=== PATIENT | female | born 1985 | race African-American/Black ===

== ENCOUNTER 2016-07-25 08:56 | Emergency (ER) | payer BC, OTHER ==
[~2016-07-25] VITALS: Ht 167.6 cm; Wt 83.0 kg
[~2016-07-25 08:56] MED LIST: ATOR20TA15 PO; CEPH-460 PO; DARU1TAB2 PO; DOXY100C PO; EPZITAB3 PO; HYDR-3533 PO; IBUP-232 PO; LISI-515 PO
[2016-07-25 08:58] VITALS: BP 160/94; PULSE 70; RESP 24; TEMP 98.6; O2SAT 100
[2016-07-25 09:17] VITALS: BP 129/91; PULSE 68; RESP 18; O2SAT 100
[2016-07-25] MEDS ORDERED: CEPH-460 PO (09:24)
[2016-07-25] MEDS ORDERED: IBUP-232 PO (09:24)
--- NOTE | 2016-07-25 09:25 | PD ---
HPI Chief Complaint: Skin Problem Time Seen by Provider: 09:13 Travel History International Travel<30 days: No Contact w/Intl Traveler<30days: No Traveled to known affect area: No History of Present Illness HPI [id number] woman with a history of congenital HIV, well-controlled, as well as hidradenitis, presents with painful swelling in her intertriginous areas in her groin. She's done well after having a wide excision of both axilla about 6 months ago. This is only her second time having a recurrence in her groin. She states she is nare recently to shave and is worried this may have caused it. She follows with a general surgeon. She's been doing warm compresses but it's gotten more painful and tender. History Past Medical History Narrative Medical Hypertension high cholesterol HIV hidradenitis suppurativa Tetanus Vaccination: < 5 Years Influenza Vaccination: No LMP: 29 june : 0 Dilation and Curettage (D&C): No Social History Alcohol Use: Yes (occasional month) Tobacco Use: No (quit jan 2016) Allergies-Medications (Allergen,Severity, Reaction): Coded Allergies: Bactrim (Verified Allergy, Intermediate, Rash, 07/25/16) Sulfa (Verified Allergy, Intermediate, Rash, 07/25/16) Rash all over body Reported Meds & Prescriptions Reported Meds & Active Scripts Active Keflex (Cephalexin) 500 Mg Capsule 500 Mg PO TID 7 Days Ibuprofen 600 Mg Tab 600 Mg PO Q8HR PRN Reported Prezcobix (Darunavir-Cobicistat) 800-150 Mg Tab 1 Tab PO DAILY Lisinopril 20 Mg Tab 30 Mg PO DAILY Epzicom (Abacavir-Lamivudine) 600-300 Mg Tab 1 Tab PO DAILY Hazardous agent; use appropriate precautions for handling & disposal. Atorvastatin (Atorvastatin Calcium) 20 Mg Tab 20 Mg PO HS Review of Systems Except as stated in HPI: all other systems reviewed are Neg Physical Exam Narrative GENERAL: Well-appearing 22-year-old woman, no acute distress. SKIN: Warm and dry. CARDIOVASCULAR: Warm and well perfused. RESPIRATORY: Normal rate and effort. : On the left inguinal intertriginous fold, near the left labia majora, there is a small area of induration and tenderness, there is some fluctuance and a small pustular head. NEUROLOGICAL: Awake and alert. No gross deficits. Data Data Last Documented VS Vital Signs Date Time Temp Pulse Resp B/P Pulse Ox O2 Delivery O2 Flow Rate FiO2 07/25/16 09:17 68 18 129/91 100 Room Air 07/25/16 08:58 98.6 [facility] Medical Decision Making Medical Screen Exam Complete: Yes Emergency Medical Condition: Yes Differential Diagnosis Hidradenitis suppurativa, abscess, infection, other Narrative Course Medical decision making 22-year-old woman with soft tissue inflammation and infection and likely abscess related to hs. Would like to try to avoid surgically treating this given her history of hs to prevent additional scarring and sinus tract formation. We'll try antibiotics, warm compresses, if not improving will need drainage. We'll have her follow-up with her general surgeon who did her excisions and is managing her hs. Diagnosis Primary Impression: Hidradenitis suppurativa Patient Instructions: General Instructions Departure Forms: Tests/Procedures, Work Release Enter return to work date: Jul 27, 2016 Med/Other Pt SpecificInfo: Prescription(s) given Scripts Cephalexin (Keflex)500 Mg [id number] Mg PO TID 7 Days Ref 0 Prov:Tim Jeffries MD 07/25/16 Ibuprofen 600 Mg [id number] Mg PO Q8HR PRN (Pain/Inflammation) #21 TAB Ref 0 Prov:Tim Jeffries MD 07/25/16 Disposition: 01 DISCHARGE HOME Condition: Stable Tim Jeffries MD July 25, 2016 09:24
== END 2016-07-25 09:42 | disposition home or self-care (01) ==
LOC: NEPD 08:56
DX: L73.2 Hidradenitis suppurativa (principal)
CPT/HCPCS: 99283

== ENCOUNTER 2016-08-24 17:10 | Emergency (ER) | payer OTHER ==
[~2016-08-24] VITALS: Ht 167.6 cm; Wt 84.0 kg
[~2016-08-24 17:10] MED LIST changes: -DOXY100C PO; -HYDR-3533 PO
[2016-08-24 17:14] VITALS: BP 137/98; PULSE 102; RESP 16; TEMP 97.6; O2SAT 100
[2016-08-24] MEDS ORDERED: RITO100 PO (17:34)
[2016-08-24 17:36] LABS: BLOOD, URINE LARGE (NEG); GLUCOSE,URINE NEG (NEG); KETONE, URINE NEG (NEG); NITRITE,URINE NEG (NEG)
--- NOTE | 2016-08-24 17:44 | PD ---
HPI Chief Complaint: Concreting Supervisor Problem/Complaint Time Seen by Provider: 17:35 Travel History International Travel<30 days: No Contact w/Intl Traveler<30days: No Traveled to known affect area: No History of Present Illness HPI The patient is a 30-year-old after [place] Citizen female who presents emergency Department for vaginal itching. The patient states she used Fontanez 3 days ago on her inguinal hairs, has used in the past without difficulties. The patient then had protected sex with her boyfriend several days ago and developed vaginal itching. She states she is currently on her menstrual cycle, has a small amount of cramping, but denies any vaginal discharge. She does have a history of yeast infections with similar symptoms. The patient was born with HIV, is currently on antiviral therapy and states that her viral count is undetectable. She does note she uses a condom with every episode of intercourse. She denies any nausea, vomiting, abdominal pain, or fever. Symptoms are mild, possibly exacerbated by Fontanez or recent sexual activity and there are no current alleviating factors. PFSH Past Medical History Asthma: Yes Autoimmune Disease: Yes Blood Disorders: Yes (HIV) Heart Rhythm Problems: Yes Cardiovascular Problems: Yes High Cholesterol: Yes Cystic Fibrosis: No Diminished Hearing: No Gastrointestinal Disorders: No GERD: Yes Hypertension: Yes Immune Disorder: Yes (HIV) Musculoskeletal: No Neurologic: No Psychiatric: No Reproductive: No Respiratory: No Pneumonia: Yes (AGE 12) Seizures: No Shingles: Yes (AGE 15) Sleep Apnea: No Tetanus Vaccination: < 5 Years Influenza Vaccination: Yes ?: Not LMP: NOW : 0 Ectopic : No Ovarian Cysts: No Dilation and Curettage (D&C): No Tubal Ligation: No Past Surgical History Section: No Genitourinary Surgery: No Hysterectomy: No Neurologic Surgery: No Other Surgery: Yes (HIDRADENITIS) Social History Alcohol Use: Yes (occasional month) Tobacco Use: No (quit jan 2016) Substance Use: No Allergies-Medications (Allergen,Severity, Reaction): Coded Allergies: Bactrim (Verified Allergy, Intermediate, Rash, 08/24/16) Sulfa (Verified Allergy, Intermediate, Rash, 08/24/16) Rash all over body Reported Meds & Prescriptions Reported Meds & Active Scripts Active Reported Norvir (Ritonavir) 100 Mg Cap Unknown Dose PO BID Prezcobix (Darunavir-Cobicistat) 800-150 Mg Tab 1 Tab PO DAILY Lisinopril 20 Mg Tab 30 Mg PO DAILY Atorvastatin (Atorvastatin Calcium) 20 Mg Tab 20 Mg PO HS Review of Systems Except as stated in HPI: all other systems reviewed are Neg General / Constitutional: No: Fever Gastrointestinal: No: Nausea, Vomiting, Abdominal Pain Genitourinary: Positive: Pelvic Pain (cramping with menstrual cycle), Vaginal Bleeding (currently on her menstrual cycle), No: Dysuria Skin: Positive Itching, No Other Physical Exam Narrative GENERAL: Awake, alert, nontoxic-appearing 30-year-old Faye female who appears her stated age and is in no acute respiratory distress. SKIN: Focused skin assessment warm/dry. HEAD: Atraumatic. Normocephalic. EYES: No injection or drainage. NECK: Trachea midline. No JVD. GASTROINTESTINAL: Abdomen soft, non-tender, nondistended. No rebound tenderness. Back: No CVA tenderness. Genitourinary: The exam was performed in the presence of a female nurse. External examination reveals no rashes or lesions. Patient has a well-healed scar in the left suprapubic region, but no acute vesicles noted. No acute dermatitis noted. Speculum examination was performed which reveals scant blood in the vaginal vault. Cervix is closed. Normal exam. MUSCULOSKELETAL: No obvious deformities. No clubbing. No cyanosis. No edema. NEUROLOGICAL: Awake and alert. No obvious cranial nerve deficits. Motor grossly within normal limits. Normal speech. PSYCHIATRIC: Appropriate mood and affect; insight and judgment normal. Data Data Last Documented VS Vital Signs Date Time Temp Pulse Resp B/P Pulse Ox O2 Delivery O2 Flow Rate FiO2 08/24/16 17:14 97.6 102 16 137/98 100 Orders Ed Urine Pregnancytest Poc (08/24/16 17:24) Urinalysis - C+S If Indicated (08/24/16 17:24) Gc And Chlamydia Pcr (08/24/16 17:35) Wet Prep Profile (08/24/16 17:35) Labs Laboratory Tests Test 08/24/16 08/24/16 17:30 17:53 Urine Collection Type CLEAN CATCH Urine Color STRAW Urine Turbidity CLEAR Urine pH 7.0 Urine Specific [place] 1.022 Urine Protein NEG mg/dL Urine Glucose (UA) NEG mg/dL Urine Ketones NEG mg/dL Urine Occult Blood LARGE Urine Nitrite NEG Urine Bilirubin NEG Urine Leukocyte Esterase NEG Urine RBC 0-3 /hpf Urine WBC 0-2 /hpf Urine Squamous Epithelial 6-8 /hpf Cells Urine Bacteria RARE /hpf Microscopic Urinalysis Comment CULT NOT INDICATED Clue Cells (Wet Prep) NONE SEEN Vaginal Trichomonas (Wet Prep) NONE SEEN Vaginal Yeast (Wet Prep) NONE SEEN MDM Medical Decision Making Medical Screen Exam Complete: Yes Emergency Medical Condition: Yes Medical Record Reviewed: Yes Interpretation(s) Laboratory Tests Test 08/24/16 08/24/16 17:30 17:53 Urine Collection Type CLEAN CATCH Urine Color STRAW Urine Turbidity CLEAR Urine pH 7.0 Urine Specific [place] 1.022 Urine Protein NEG mg/dL Urine Glucose (UA) NEG mg/dL Urine Ketones NEG mg/dL Urine Occult Blood LARGE Urine Nitrite NEG Urine Bilirubin NEG Urine Leukocyte Esterase NEG Urine RBC 0-3 /hpf Urine WBC 0-2 /hpf Urine Squamous Epithelial 6-8 /hpf Cells Urine Bacteria RARE /hpf Microscopic Urinalysis Comment CULT NOT INDICATED Clue Cells (Wet Prep) NONE SEEN Vaginal Trichomonas (Wet Prep) NONE SEEN Vaginal Yeast (Wet Prep) NONE SEEN Differential Diagnosis Differential diagnosis includes [place] infection, medication side effect, bacterial vaginosis, trichomonas, vaginitis, chemical vaginitis, dermatitis. Narrative Course UA was sent to lab and bedside UA test was obtained. A pelvic exam was performed in the presence of a female nurse. Wet prep and gonorrhea/ chlamydia PCR were sent to lab. Bedside UA test was negative. Wet prep is negative. UA reveals blood, otherwise unremarkable. I do not suspect gonorrhea or chlamydia. I had a discussion with the patient, they do use condoms, the irritation could be chemical/contact irritant verses chemical reaction from possible spermicide. She is advised to follow-up with a metal patternmaker and return if symptoms worsen or progress. Patient is stable for outpatient follow-up. Diagnosis Primary Impression: Vaginal irritation Patient Instructions: General Instructions Med/Other Pt SpecificInfo: No Change to Meds Disposition: DISCHARGE HOME Condition: Stable Eliot Palma MD Aug 24, 2016 17:44
[2016-08-24 17:58] LABS: METHOD OF COLLECTION CLEAN CATCH; URINE COLOR STRAW (YELLW/STRAW)
[2016-08-24 17:59] LABS: WBC, URINE 0-2 /hpf (0-5)
[2016-08-24 18:00] LABS: BACTERIA, URINE RARE /hpf; COMMENT (UR) CULT NOT INDICATED; CULTURE IF INDICATED CULT NOT INDICATED; RBC, URINE 0-3 /hpf (0-3)
[2016-08-24 18:58] VITALS: BP 132/84; PULSE 84; RESP 18; O2SAT 98
[2016-08-25 03:02] LABS: CHLAMYDIA PCR NOT DETECTED (NOT DETECT); NEISSERIA PCR NOT DETECTED (NOT DETECT)
== END 2016-08-24 19:00 | disposition home or self-care (01) ==
LOC: PHED 17:10
DX: N89.8 Other specified noninflammatory disorders of vagina (principal); B20 Human immunodeficiency virus [HIV] disease; E78.00 Pure hypercholesterolemia, unspecified; I10 Essential (primary) hypertension; K21.9 Gastro-esophageal reflux disease without esophagitis
CPT/HCPCS: 81001; 84703; 87210; 87491; 87591; 99284

== ENCOUNTER 2016-09-14 19:46 | Emergency (ER) | payer OTHER ==
[~2016-09-14] VITALS: Ht 167.6 cm; Wt 82.0 kg
[~2016-09-14 19:46] MED LIST changes: -CEPH-460 PO; -EPZITAB3 PO; -IBUP-232 PO; +RITO100 PO
[2016-09-14 19:50] VITALS: BP 155/81; PULSE 20; PULSE 88; RESP 20; TEMP 97.7; O2SAT 100
[2016-09-14] MEDS ORDERED: EPZITAB3 PO (20:04)
--- NOTE | 2016-09-14 20:34 | PD ---
HPI Chief Complaint: Skin Problem Time Seen by Provider: 20:00 Travel History International Travel<30 days: No Contact w/Intl Traveler<30days: No Traveled to known affect area: No History of Present Illness HPI 30-year-old female presents emergency department for evaluation of wound on left great toe. She reports she had a wart cryotherapy several weeks ago. She reports 1 day ago she noticed pain and yellow discharge draining from the site. She denies fever or chills. She reports the pain is localized in the great toe it does not extend into the foot. patient was born with HIV, is currently on antiviral therapy and states that her viral count is undetectable. PFSH Past Medical History Asthma: Yes Autoimmune Disease: Yes Blood Disorders: Yes (HIV) Heart Rhythm Problems: Yes Cardiovascular Problems: Yes High Cholesterol: Yes Cystic Fibrosis: No Diminished Hearing: No Gastrointestinal Disorders: No GERD: Yes Hypertension: Yes Immune Disorder: Yes (HIV) Musculoskeletal: No Neurologic: No Psychiatric: No Reproductive: No Respiratory: No Pneumonia: Yes Seizures: No Shingles: Yes Sleep Apnea: No Tetanus Vaccination: < 5 Years Influenza Vaccination: Yes ?: Not LMP: First week of August : 0 Ectopic : No Ovarian Cysts: No Dilation and Curettage (D&C): No Tubal Ligation: No Past Surgical History Section: No Genitourinary Surgery: No Hysterectomy: No Neurologic Surgery: No Other Surgery: Yes (BL axilla for hidradenitis suppurativa) Social History Alcohol Use: Yes (Occ.) Tobacco Use: No Substance Use: Yes (Marijuana occ. ) Allergies-Medications (Allergen,Severity, Reaction): Coded Allergies: Bactrim (Verified Allergy, Intermediate, Rash, 09/14/16) Sulfa (Verified Allergy, Intermediate, Rash, 09/14/16) Rash all over body Reported Meds & Prescriptions Reported Meds & Active Scripts Active Reported Epzicom (Abacavir-Lamivudine) 600-300 Mg Tab 1 Tab PO DAILY Hazardous agent; use appropriate precautions for handling & disposal. Prezcobix (Darunavir-Cobicistat) 800-150 Mg Tab 1 Tab PO DAILY Lisinopril 20 Mg Tab 30 Mg PO DAILY Atorvastatin (Atorvastatin Calcium) 20 Mg Tab 20 Mg PO HS Review of Systems Except as stated in HPI: all other systems reviewed are Neg General / Constitutional: No: Fever Eyes: No: Visual changes HENT: No: Headaches Cardiovascular: No: Chest Pain or Discomfort Respiratory: No: Shortness of Breath Gastrointestinal: No: Abdominal Pain Genitourinary: No: Dysuria Physical Exam Narrative GENERAL: Well-nourished, well-developed patient. SKIN: Focused skin assessment warm/dry. Left great toe plantar aspect 1.5 cm diameter area of hyperpigmentation which patient reports is chronic. In the center of this is an open lesion which was the site of the wart. There is small amount of serosanguineous drainage from this area. The left toe is slightly edematous. There is no surrounding erythema. No fluctuance. HEAD: Normocephalic. EYES: No scleral icterus. No injection or drainage. NECK: Supple, trachea midline. No JVD or lymphadenopathy. CARDIOVASCULAR: Regular rate and rhythm without murmurs, gallops, or rubs. RESPIRATORY: Breath sounds equal bilaterally. No accessory muscle use. GASTROINTESTINAL: Abdomen soft, non-tender, nondistended. MUSCULOSKELETAL: No cyanosis, or edema. Left great toe plantar aspect 1.5 cm diameter area of hyperpigmentation which patient reports is chronic. In the center of this is an open lesion which was the site of the wart. There is small amount of serosanguineous drainage from this area. The left toe is slightly edematous. There is no surrounding erythema. No fluctuance. BACK: Nontender without obvious deformity. No CVA tenderness. Data Data Last Documented VS Vital Signs Date Time Temp Pulse Resp B/P Pulse Ox O2 Delivery O2 Flow Rate FiO2 09/14/16 19:50 97.7 88 20 155/81 100 Orders Foot, Limited (2vws) (09/14/16 ) [facility] Medical Decision Making Medical Screen Exam Complete: Yes Emergency Medical Condition: Yes Differential Diagnosis Wound infection, abscess, cellulitis, unlikely osteomyelitis Narrative Course 22-year-old female with chief complaint of left great toe pain status post cryotherapy to a wart several weeks ago. Patient reports yesterday she developed pain and drainage from the site. She denies fever or chills. X-ray pending to rule out osteomyelitis or foreign body. X-ray the foot negative for evidence of osteomyelitis. Patient will be put on clindamycin and instructed to have close follow-up. Return precautions discussed. Patient verbalizes understanding and agrees to plan. Diagnosis Primary Impression: Wound infection Referrals: Primary Care Physician Additional Instructions: Take the antibiotics as prescribed. Follow-up with her primary care doctor for recheck on Saturday. Return to the emergency department if he developed new or worsening symptoms Scripts Clindamycin 300 Mg [id number] Mg PO Q6H #40 CAP Prov:Louisa Macias 09/14/16 Disposition: 01 DISCHARGE HOME Condition: Stable Louisa Macias Sep 14, 2016 20:34
--- NOTE | 2016-09-14 20:57 | RADRPT ---
EXAM DATE/TIME: 09/14/2016 20:34 [facility] COMPARISON: No previous studies available for comparison. INDICATIONS : Swelling and pain left great toe. Possible infection. MEDICAL HISTORY : None. SURGICAL HISTORY : None. ENCOUNTER: Initial ACUITY: 4 - 6 days PAIN SCORE: 7/10 LOCATION: Left lateral FINDINGS: Two view examination of the left foot demonstrates no soft tissue swelling, dislocation, or fracture. The calcaneus is intact. Bony mineralization is normal. Posterior calcaneal enthesophyte formation . There is no subcutaneous emphysema or obvious cortical destruction. Soft tissues are unremarkable. CONCLUSION: No acute disease. Garland Ramon MD on September 14, 2016 at 20:54 Board Certified Radiologist. This report was verified electronically.
[2016-09-14] MEDS ORDERED: CLIN1CAP6 PO (21:03)
== END 2016-09-14 21:14 | disposition home or self-care (01) ==
LOC: PHEFT 19:46
DX: L08.9 Local infection of the skin and subcutaneous tissue, unspecified (principal); M79.675 Pain in left toe(s)
CPT/HCPCS: 73620; 99283

== ENCOUNTER 2016-11-15 04:33 | Emergency (ER) | payer OTHER ==
[~2016-11-15] VITALS: Ht 165.1 cm; Wt 83.4 kg
[~2016-11-15 04:33] MED LIST changes: +CLIN1CAP6 PO; +EPZITAB3 PO; -RITO100 PO
[2016-11-15 04:40] VITALS: BP 111/71; PULSE 94; RESP 16; TEMP 98.4; O2SAT 100
[2016-11-15] MEDS ORDERED: CHLO25TA2 PO (04:54)
[2016-11-15] MEDS ORDERED: METR-1 PO (04:54)
[2016-11-15] MEDS ORDERED: SODIUM CHLOR 0.9% 1000 ML INJ 1,000 ML IV SCH (05:11)
--- NOTE | 2016-11-15 05:11 | PD ---
HPI Chief Complaint: Flank/Kidney Pain Time Seen by Provider: 04:51 Travel History International Travel<30 days: No Contact w/Intl Traveler<30days: No Traveled to known affect area: No History of Present Illness HPI The patient is a 31-year-old female, G0, P0, A0 who complains of bilateral flank pain for 3 days. On Saturday she saw her [employer] doctor who diagnosed bacterial vaginosis and treated her with Flagyl. A negative urine test was done on Saturday. On Saturday she developed left flank pain and she discontinue the Flagyl thinking that the Flagyl might be causing her pain. She does have nausea without vomiting. She denies any fever. She denies any dysuria, frequency or urgency. She has never had any surgery and still has her appendix and gallbladder. Her last menstrual period was October 30. The patient states her abdominal pain is an 8-9/10 and a cramping type pain. PFSH Past Medical History Asthma: Yes Autoimmune Disease: Yes Blood Disorders: Yes (HIV) Heart Rhythm Problems: Yes Cardiovascular Problems: Yes High Cholesterol: Yes Cystic Fibrosis: No Diminished Hearing: No Gastrointestinal Disorders: No GERD: Yes Headaches: Yes Hypertension: Yes Immune Disorder: Yes (HIV) Musculoskeletal: No Neurologic: No Psychiatric: No Reproductive: No Respiratory: No Pneumonia: Yes Seizures: No Shingles: Yes Sleep Apnea: No Tetanus Vaccination: < 5 Years Influenza Vaccination: Yes ?: Not : 0 Ectopic : No Ovarian Cysts: No Dilation and Curettage (D&C): No Tubal Ligation: No Past Surgical History Section: No Genitourinary Surgery: No Hysterectomy: No Neurologic Surgery: No Other Surgery: Yes (BL axilla for hidradenitis suppurativa) Social History Alcohol Use: Yes (Occ.) Tobacco Use: No (QUIT AGE 30) Substance Use: Yes (Marijuana occ. ) Allergies-Medications (Allergen,Severity, Reaction): Coded Allergies: Sulfa (Sulfonamide Antibiotics) (Unverified Allergy, Intermediate, Rash, ) Rash all over body sulfamethoxazole (Unverified Allergy, Intermediate, Rash, 11/15/16) trimethoprim (Unverified Allergy, Intermediate, Rash, 11/15/16) Reported Meds & Prescriptions Reported Meds & Active Scripts Active Doxycycline Hyclate 100 Mg Cap 100 Mg PO BID Macrobid (Nitrofurantoin Monohydrate Macrocrystals) 100 Mg Capsule 100 Mg PO BID 10 Days Reported Chlorthalidone 25 Mg Tab 12.5 Mg PO DAILY Flagyl (Metronidazole) 500 Mg Tab 500 Mg PO BID Epzicom (Abacavir-Lamivudine) 600-300 Mg Tab 1 Tab PO DAILY Hazardous agent; use appropriate precautions for handling & disposal. Prezcobix (Darunavir-Cobicistat) 800-150 Mg Tab 1 Tab PO DAILY Lisinopril 20 Mg Tab 30 Mg PO DAILY Atorvastatin (Atorvastatin Calcium) 20 Mg Tab 20 Mg PO HS Review of Systems Except as stated in HPI: all other systems reviewed are Neg Physical Exam Narrative GENERAL: The patient is alert, oriented 3 and moderate apparent distress with her bilateral flank pain. Her vital signs are normal except for heart rate of 94. SKIN: Focused skin assessment warm/dry. HEAD: Atraumatic. Normocephalic. EYES: Pupils equal and round. No scleral icterus. No injection or drainage. ENT: No nasal bleeding or discharge. Mucous membranes pink and moist. NECK: Trachea midline. No JVD. CARDIOVASCULAR: Regular rate and rhythm. No murmur appreciated. RESPIRATORY: No accessory muscle use. Clear to auscultation. Breath sounds equal bilaterally. GASTROINTESTINAL: Abdomen soft, with tenderness diffusely in all 4 quadrants both the right and left quadrants are tender but the right upper quadrant is the most tender. The abdomen is nondistended. Hepatic and splenic margins not palpable. Ortiz's sign is negative. MUSCULOSKELETAL: No obvious deformities. No clubbing. No cyanosis. No edema. NEUROLOGICAL: Awake and alert. No obvious cranial nerve deficits. Motor grossly within normal limits. Normal speech. PSYCHIATRIC: Appropriate mood and affect; insight and judgment normal. GENITOURINARY: Normal external genitalia without lesions or erythema. Vaginal vault without blood and there is a pure white drainage. Cervical os was closed with clear drainage. There is exquisite cervical motion tenderness. Uterus tender and nonenlarged. Bilateral adnexa tender without masses. Data Data Last Documented VS Vital Signs Date Time Temp Pulse Resp B/P (MAP) Pulse Ox O2 Delivery O2 Flow Rate FiO2 11/15/16 06:46 88 16 116/74 (88) 100 Room Air 11/15/16 04:40 98.4 Orders Orders Beta Hcg (Quant/Titer) (11/15/16 05:11) Complete Blood Count With Diff (11/15/16 05:11) Comprehensive Metabolic Panel (11/15/16 05:11) Lipase (11/15/16 05:11) Urinalysis - C+S If Indicated (11/15/16 05:11) Ct Abd/Pel W Iv Contrast(Rout) (11/15/16 05:11) Iv Access Insert/Monitor (11/15/16 05:11) Ecg Monitoring (11/15/16 05:11) Oximetry (11/15/16 05:11) Ondansetron Inj (Zofran Inj) (11/15/16 05:15) Sodium Chlor 0.9% 1000 Ml Inj (Ns 1000 M (11/15/16 05:11) Sodium Chloride 0.9% Flush (Ns Flush) (11/15/16 05:15) Hydromorphone Pf Inj (Dilaudid Pf Inj) (11/15/16 05:15) Gc And Chlamydia Pcr (11/15/16 05:13) Wet Prep Profile (11/15/16 05:13) Iohexol 350 Inj (Omnipaque 350 Inj) (11/15/16 06:20) Urine Culture (11/15/16 06:10) Ceftriaxone Inj (Rocephin Inj) (11/15/16 07:00) Doxycycline (Vibramycin) (11/15/16 07:00) Labs Laboratory Tests Test 11/15/16 04:55 11/15/16 06:10 White Blood Count 9.6 TH/MM3 Red Blood Count 4.59 MIL/MM3 Hemoglobin 11.8 GM/DL Hematocrit 36.7 % Mean Corpuscular Volume 79.9 FL Mean Corpuscular Hemoglobin 25.6 PG Mean Corpuscular Hemoglobin Concent 32.1 % Red Cell Distribution Width 21.9 % Platelet Count 283 TH/MM3 Mean Platelet Volume 9.5 FL Neutrophils (%) (Auto) 61.9 % Lymphocytes (%) (Auto) 29.1 % Monocytes (%) (Auto) 7.7 % Eosinophils (%) (Auto) 0.5 % Basophils (%) (Auto) 0.8 % Neutrophils # (Auto) 6.0 TH/MM3 Lymphocytes # (Auto) 2.8 TH/MM3 Monocytes # (Auto) 0.7 TH/MM3 Eosinophils # (Auto) 0.0 TH/MM3 Basophils # (Auto) 0.1 TH/MM3 CBC Comment DIFF FINAL Differential Comment Clue Cells (Wet Prep) PRESENT Vaginal Trichomonas (Wet Prep) NONE SEEN Vaginal Yeast (Wet Prep) NONE SEEN Blood Urea Nitrogen 14 MG/DL Creatinine 0.92 MG/DL Random Glucose 120 MG/DL Total Protein 7.5 GM/DL Albumin 3.2 GM/DL Calcium Level 8.5 MG/DL Alkaline Phosphatase 79 U/L Aspartate Amino Transf (AST/SGOT) 12 U/L Alanine Aminotransferase (ALT/SGPT) 23 U/L Total Bilirubin 0.3 MG/DL Sodium Level 137 MEQ/L Potassium Level 3.3 MEQ/L Chloride Level 102 MEQ/L Carbon Dioxide Level 25.6 MEQ/L Anion Gap 9 MEQ/L Estimat Glomerular Filtration Rate 87 ML/MIN Lipase 112 U/L Human Chorionic Gonadotropin, Quant LESS THAN 1 MIU/ML Urine Color YELLOW Urine Turbidity SLIGHT Urine pH 6.0 Urine Specific [place] 1.008 Urine Protein NEG mg/dL Urine Glucose (UA) NEG mg/dL Urine Ketones NEG mg/dL Urine Occult Blood TRACE Urine Nitrite NEG Urine Bilirubin NEG Urine Leukocyte Esterase MOD Urine RBC 0-3 /hpf Urine WBC 50-99 /hpf Urine WBC Clumps MOD Urine Squamous Epithelial Cells 0-5 /hpf Urine Bacteria OCC /hpf Microscopic Urinalysis Comment CULTURE INDICATED MDM Medical Decision Making Medical Screen Exam Complete: Yes Emergency Medical Condition: Yes Medical Record Reviewed: Yes Interpretation(s) The complete metabolic profile shows a potassium of 3.3, GFR of 87, glucose of 120 and albumen 3.2 but is otherwise unremarkable. The lipase is normal and the beta-hCG is less than 1. The CBC is normal except for a slightly low MCV and MCH. The wet prep is positive for clue cells but negative for Trichomonas and yeast. The urine shows slight turbidity, specific gravity 1.008, trace occult blood with moderate leukocyte esterase and 15 and 99 white cells and moderate white cell clumping's and occasional bacteria and culture is indicated. Differential Diagnosis PID, urinary tract infection, rupture ovarian cyst, cholecystitis, cholelithiasis with colic, pancreatitis, colitis, electrolyte disorder, intrauterine , ectopic Narrative Course The patient likely has pyelonephritis and cystitis. She also may have PID. The CT scan shows thickening of the bladder characteristic of cystitis. She has tenderness over her kidneys, this is likely from the pyelonephritis. Physician Communication Physician Communication As we discussed, you will need to take your metronidazole as prescribed for the bacterial vaginosis. The doxycycline is one tablet twice daily for 10 days. Increase your liquid intake, it is important to have a good urine flow across your kidneys to fight a urine infection. Follow-up with your primary care physician next week. Diagnosis Primary Impression: Pyelonephritis Additional Impression: PID (pelvic inflammatory disease) Med/Other Pt SpecificInfo: Prescription(s) given Scripts Promethazine (Phenergan) 25 Mg Tablet 25 MG PO Q6H Y for NAUSEA OR VOMITING, #30 TAB 0 Refills Prov: Fausto Rucker MD 11/15/16 Doxycycline Hyclate (Doxycycline Hyclate) 100 Mg Cap 100 MG PO BID for Infection, #20 CAP 0 Refills Prov: Fausto Rucker MD 11/15/16 Nitrofurantoin Monohydrate Macrocrystals (Macrobid) 100 Mg Capsule 100 MG PO BID for Infection for 10 Days, #20 CAP 0 Refills Prov: Fausto Rucker MD 11/15/16 Disposition: 01 DISCHARGE HOME Condition: Stable Fausto Rucker MD Nov 15, 2016 05:11
[2016-11-15] MEDS ORDERED: HYDROmorphone HCL PF 1 MG/ML VIAL IVS ONE (05:15)
[2016-11-15] MEDS ORDERED: ONDANSETRON HCL 4 MG/2 ML VIAL IVP ONE (05:15)
[2016-11-15] MEDS ORDERED: SODIUM CHLORIDE 0.9% FLUSH 10 ML FLUSH IV FLUSH PRN (05:15)
[2016-11-15 05:42] LABS: BASOPHIL # 0.1 TH/MM3 (0-0.2); BASOPHIL % 0.8 % (0.0-2.0); EOSINOPHIL % 0.5 % (0.0-4.0); HEMATOCRIT 36.7 % (35.0-46.0); HEMO FLAGS DIFF FINAL; LYMPH % 29.1 % (9.0-44.0); LYMPHOCYTE # 2.8 TH/MM3 (1.0-4.8); MEAN CELL VOLUME 79.9 FL (80.0-100.0); MEAN CORPUSCULAR HEMOGLOBIN 25.6 PG (27.0-34.0); MEAN CORPUSCULAR HGB CONC 32.1 % (32.0-36.0); MONO % 7.7 % (0.0-8.0); NEUT % 61.9 % (16.0-70.0); PLATELET COUNT 283 TH/MM3 (150-450); RED BLOOD COUNT 4.59 MIL/MM3 (4.00-5.30); RED CELL DISTRIBUTION WIDTH 21.9 % (11.6-17.2); WHITE BLOOD COUNT 9.6 TH/MM3 (4.0-11.0)
[2016-11-15 05:45] VITALS: PULSE 84; RESP 16; O2SAT 100
[2016-11-15 05:47] LABS: CHLORIDE 102 MEQ/L (98-107); POTASSIUM 3.3 MEQ/L (3.5-5.1); SODIUM (NA) 137 MEQ/L (136-145)
[2016-11-15 05:51] LABS: ANION GAP 9 MEQ/L (5-15); BICARBONATE 25.6 MEQ/L (21.0-32.0)
[2016-11-15 05:52] LABS: BLOOD UREA NITROGEN 14 MG/DL (7-18)
[2016-11-15 05:54] LABS: ALT (GPT) 23 U/L (10-53); AST (GOT) 12 U/L (15-37); GLOMERULAR FILTRATION RATE 87 ML/MIN (>89)
[2016-11-15 05:56] LABS: TOTAL BILIRUBIN ADULT 0.3 MG/DL (0.2-1.0)
[2016-11-15 05:57] LABS: ALKALINE PHOSPHATASE 79 U/L (45-117)
[2016-11-15 06:00] LABS: BETA HCG QUANT LESS THAN 1 MIU/ML (0-5)
[2016-11-15 06:16] LABS: BLOOD, URINE TRACE (NEG); GLUCOSE,URINE NEG (NEG); KETONE, URINE NEG (NEG); NITRITE,URINE NEG (NEG)
[2016-11-15 06:20] LABS: URINE COLOR YELLOW (YELLW/STRAW)
[2016-11-15] MEDS ORDERED: IOHEXOL 350 MG/ML 10 ML VIAL (for RAD DIAG) IVCONTRAST ONE (06:20)
[2016-11-15 06:22] LABS: RBC, URINE 0-3 /hpf (0-3); SQUAMOUS EPITHELIAL CELL URINE 0-5 /hpf (0-5)
[2016-11-15 06:23] LABS: BACTERIA, URINE OCC /hpf; COMMENT (UR) CULTURE INDICATED; CULTURE IF INDICATED CULTURE INDICATED
[2016-11-15 06:46] VITALS: BP 116/74; PULSE 88; RESP 16; O2SAT 100
[2016-11-15] MEDS ORDERED: MACR100C2 PO (06:50)
[2016-11-15] MEDS ORDERED: DOXY100C PO (06:52)
--- NOTE | 2016-11-15 06:54 | RADRPT ---
EXAM DATE/TIME: 11/15/2016 06:16 [facility] COMPARISON: No previous studies available for comparison. INDICATIONS : Bilateral abdominal pain. IV CONTRAST: 100 cc Omnipaque 350 (iohexol) IV ORAL CONTRAST: No oral contrast ingested. RADIATION DOSE: 13.71 CTDIvol (mGy) MEDICAL HISTORY : Hypertension. HIV. SURGICAL HISTORY : None. ENCOUNTER: Initial ACUITY: 2 days PAIN SCALE: 8/10 LOCATION: Bilateral abdomen TECHNIQUE: Volumetric scanning of the abdomen and pelvis was performed. Using automated exposure control and ad justment of the mA and/or kV according to patient size, radiation dose was kept as low as reasonably achievable to obtain optimal diagnostic quality images. DICOM format image data is available electro nically for review and comparison. FINDINGS: LOWER LUNGS: The visualized lower lungs are clear. LIVER: Homogeneous density without lesion. There is no dilation of the biliary tree. No calcified gallston es. SPLEEN: Normal size without lesion. PANCREAS: Within normal limits. KIDNEYS: Normal in size and shape. There is no mass, stone or hydronephrosis. ADRENAL GLANDS: Within normal limits. VASCULAR: There is no aortic aneurysm. BOWEL/MESENTERY: The stomach, small bowel, and colon demonstrate no acute abnormality. There is no free intraperitone al air or fluid. ABDOMINAL WALL: Within normal limits. RETROPERITONEUM: There is no lymphadenopathy. BLADDER: There is circumferential wall thickening involving the urinary bladder. No calcified bladder stone ob served. REPRODUCTIVE: Within normal limits. INGUINAL: There is no lymphadenopathy or hernia. MUSCULOSKELETAL: Within normal limits for patient age. CONCLUSION: 1. Significant circumferential wall thickening involving the urinary bladder suggesting acute cystiti sCorey Richmond Jr., MD on November 15, 2016 at 6:50 Board Certified Radiologist. This report was verified electronically.
[2016-11-15] MEDS ORDERED: PROM25TA10 PO (06:59)
[2016-11-15 07:00] VITALS: O2SAT 100
[2016-11-15] MEDS ORDERED: cefTRIAXone INJ 1,000 MG in SODIUM CHLORIDE 0.9% INJ 100 ML IV ONE (07:00)
[2016-11-15] MEDS ORDERED: DOXYCYCLINE HYCLATE 100 MG CAP PO ONE (07:00)
[2016-11-15 13:26] LABS: CHLAMYDIA PCR NOT DETECTED (NOT DETECT); NEISSERIA PCR NOT DETECTED (NOT DETECT)
== END 2016-11-15 08:04 | disposition home or self-care (01) ==
LOC: PHED 04:33
DX: N12 Tubulo-interstitial nephritis, not specified as acute or chronic (principal); N73.9 Female pelvic inflammatory disease, unspecified; Z87.891 Personal history of nicotine dependence; E78.00 Pure hypercholesterolemia, unspecified; I10 Essential (primary) hypertension; B20 Human immunodeficiency virus [HIV] disease
CPT/HCPCS: 74177; 80053; 81001; 83690; 84702; 85025; 86403; 87077; 87086; 87186; 87210; 87491; 87591; 96361; 96365; 96375; 99285; J0696; J1170; J2405; J7030; Q9967

== ENCOUNTER 2016-12-05 07:33 | Emergency (ER) | payer BC, OTHER ==
[~2016-12-05] VITALS: Ht 167.6 cm; Wt 84.0 kg
[~2016-12-05 07:33] MED LIST changes: +CHLO25TA2 PO; -CLIN1CAP6 PO; +DOXY100C PO; +MACR100C2 PO; +METR-1 PO; +PROM25TA10 PO
[2016-12-05 07:35] VITALS: BP 119/77; PULSE 92; RESP 14; TEMP 98.7; O2SAT 100
[2016-12-05] MEDS ORDERED: APRITAB PO (07:53)
[2016-12-05 08:00] VITALS: BP 126/88; PULSE 80; RESP 16; O2SAT 100
[2016-12-05] MEDS ORDERED: SODIUM CHLOR 0.9% 1000 ML INJ 1,000 ML IV SCH (08:08)
--- NOTE | 2016-12-05 08:08 | PD ---
HPI Chief Complaint: Abdominal Pain Time Seen by Provider: 07:44 Travel History International Travel<30 days: No Contact w/Intl Traveler<30days: No Traveled to known affect area: No History of Present Illness HPI 31-year-old female came to the emergency room with history of abdominal pain mostly on the left flank area. Patient says that she started having this pain since past 2 days. It's progressively worsening. The location has not changed. It starts off in the left lower quadrant and occasionally moves to her left flank. It's a sharp pain and comes and goes. No history of nausea vomiting. Patient was seen in [place] emergency room about 3 weeks ago for lower abdominal pain when she was diagnosed with UTI as well as STD. She was discharged home on Flagyl, doxycycline and Macrobid that she finished taking 2- 3 days ago. Patient has also started with diarrhea. Patient said that in past 24 hours she has had 8 episodes of watery diarrhea. They're nonbloody. Vital signs are stable. [facility] Past Medical History Narrative Medical List of her past medical, surgical, social and family history is reviewed from the nursing note. Asthma: Yes Autoimmune Disease: Yes Blood Disorders: Yes (HIV) Heart Rhythm Problems: Yes Cardiovascular Problems: Yes High Cholesterol: Yes Cystic Fibrosis: No Diminished Hearing: No Gastrointestinal Disorders: No GERD: Yes Headaches: Yes Hypertension: Yes Immune Disorder: Yes (HIV) Musculoskeletal: No Neurologic: No Psychiatric: No Reproductive: No Respiratory: No Pneumonia: Yes Seizures: No Shingles: Yes Sleep Apnea: No Influenza Vaccination: Yes ?: Unknown LMP: 3 weeks ago : 0 Ectopic : No Ovarian Cysts: No Dilation and Curettage (D&C): No Tubal Ligation: No Past Surgical History Section: No Genitourinary Surgery: No Hysterectomy: No Neurologic Surgery: No Other Surgery: Yes (BL axilla for hidradenitis suppurativa) Social History Alcohol Use: Yes (Occ.) Tobacco Use: No (QUIT AGE 30) Substance Use: No Allergies-Medications (Allergen,Severity, Reaction): Coded Allergies: Sulfa (Sulfonamide Antibiotics) (Unverified Allergy, Intermediate, Rash, 12/05/16) Rash all over body sulfamethoxazole (Unverified Allergy, Intermediate, Rash, 12/05/16) trimethoprim (Unverified Allergy, Intermediate, Rash, 12/05/16) Comments List of her allergies reviewed from the nursing note. Reported Meds & Prescriptions Reported Meds & Active Scripts Active Lomotil (Diphenoxylate-Atropine) 2.5-0.025 Mg Tab 1 Tab PO Q6H PRN Phenergan (Promethazine HCl) 25 Mg Tablet 25 Mg PO Q6H PRN Reported Apri (Desogestrel-Ethinyl Estradiol) 0.15-30 Mg-Mcg Tab 1 Tab PO DAILY Chlorthalidone 25 Mg Tab 12.5 Mg PO DAILY Epzicom (Abacavir-Lamivudine) 600-300 Mg Tab 1 Tab PO DAILY Hazardous agent; use appropriate precautions for handling & disposal. Prezcobix (Darunavir-Cobicistat) 800-150 Mg Tab 1 Tab PO DAILY Lisinopril 20 Mg Tab 30 Mg PO DAILY Atorvastatin (Atorvastatin Calcium) 20 Mg Tab 20 Mg PO HS Narrative Medication List of her home medications reviewed from the nursing note. Review of Systems Except as stated in HPI: all other systems reviewed are Neg Gastrointestinal: Positive: Diarrhea, Abdominal Pain Physical Exam Narrative GENERAL: Awake, alert, mild distress SKIN: Focused skin assessment warm/dry. HEAD: Atraumatic. Normocephalic. EYES: Pupils equal and round. No scleral icterus. No injection or drainage. ENT: No nasal bleeding or discharge. Mucous membranes pink and moist. NECK: Trachea midline. No JVD. CARDIOVASCULAR: Regular rate and rhythm. No murmur appreciated. RESPIRATORY: No accessory muscle use. Clear to auscultation. Breath sounds equal bilaterally. GASTROINTESTINAL: Abdomen soft, non-tender, nondistended. Hepatic and splenic margins not palpable. MUSCULOSKELETAL: No obvious deformities. No clubbing. No cyanosis. No edema. NEUROLOGICAL: Awake and alert. No obvious cranial nerve deficits. Motor grossly within normal limits. Normal speech. PSYCHIATRIC: Appropriate mood and affect; insight and judgment normal. Data Data Last Documented VS Vital Signs Date Time Temp Pulse Resp B/P (MAP) Pulse Ox O2 Delivery O2 Flow Rate FiO2 12/05/16 11:31 12/05/16 11:00 80 16 100 Room Air 12/05/16 07:35 98.7 Orders Orders Basic Metabolic Panel (Bmp) (12/05/16 08:08) Complete Blood Count With Diff (12/05/16 08:08) Urinalysis - C+S If Indicated (12/05/16 08:08) Iv Access Insert/Monitor (12/05/16 08:08) Ecg Monitoring (12/05/16 08:08) Oximetry (12/05/16 08:08) Sodium Chlor 0.9% 1000 Ml Inj (Ns 1000 M (12/05/16 08:08) Sodium Chloride 0.9% Flush (Ns Flush) (12/05/16 08:15) C Diff Toxin Pcr (12/05/16 08:08) Ketorolac Inj (Toradol Inj) (12/05/16 10:15) Ed Discharge Order (12/05/16 10:52) Labs Laboratory Tests Test 12/05/16 08:45 12/05/16 10:04 White Blood Count 6.1 TH/MM3 Red Blood Count 4.70 MIL/MM3 Hemoglobin 12.6 GM/DL Hematocrit 38.0 % Mean Corpuscular Volume 80.9 FL Mean Corpuscular Hemoglobin 26.7 PG Mean Corpuscular Hemoglobin Concent 33.0 % Red Cell Distribution Width 23.7 % Platelet Count 218 TH/MM3 Mean Platelet Volume 9.1 FL Neutrophils (%) (Auto) 70.5 % Lymphocytes (%) (Auto) 17.8 % Monocytes (%) (Auto) 11.5 % Eosinophils (%) (Auto) 0.0 % Basophils (%) (Auto) 0.2 % Neutrophils # (Auto) 4.3 TH/MM3 Lymphocytes # (Auto) 1.1 TH/MM3 Monocytes # (Auto) 0.7 TH/MM3 Eosinophils # (Auto) 0.0 TH/MM3 Basophils # (Auto) 0.0 TH/MM3 CBC Comment DIFF FINAL Differential Comment Blood Urea Nitrogen 9 MG/DL Creatinine 0.71 MG/DL Random Glucose 78 MG/DL Calcium Level 8.0 MG/DL Sodium Level 137 MEQ/L Potassium Level 4.7 MEQ/L Chloride Level 105 MEQ/L Carbon Dioxide Level 26.4 MEQ/L Anion Gap 6 MEQ/L Estimat Glomerular Filtration Rate 118 ML/MIN Urine Color YELLOW Urine Turbidity CLEAR Urine pH 6.5 Urine Specific [place] 1.016 Urine Protein NEG mg/dL Urine Glucose (UA) NEG mg/dL Urine Ketones TRACE mg/dL Urine Occult Blood NEG Urine Nitrite NEG Urine Bilirubin NEG Urine Urobilinogen LESS THAN 2.0 MG/DL Urine Leukocyte Esterase TRACE Urine RBC 2 /hpf Urine WBC 1 /hpf Urine Squamous Epithelial Cells 2 /hpf Urine Bacteria RARE /hpf Urine Mucus FEW /lpf Microscopic Urinalysis Comment CULT NOT INDICATED MDM Medical Decision Making Medical Screen Exam Complete: Yes Emergency Medical Condition: Yes Medical Record Reviewed: Yes Differential Diagnosis UTI, musculoskeletal pain, colitis, renal colic Narrative Course 10:07 AM CBC is back which is within normal limit. Awaiting for the chemistry and UA. Patient was given a liter of IV fluid bolus. I'll order some Toradol. I looked at the CAT scan report that was done 3 weeks ago which showed mainly cystitis. The urine culture was positive for staph that were sensitive to Macrobid that she was sent home on. I do not intend to do another CAT scan since I did not appreciate any guarding or rebound. 10:52 AM all the blood test results of back and within acceptable limits. I'll discharge her home. Patient has not had any bowel movements here. Procedures EKG Prior to Arrival: No Diagnosis Primary Impression: Diarrhea Qualified Codes: R19.7 - Diarrhea, unspecified Referrals: Primary Care Physician 2 days Additional Instructions: Please return to the ER if the condition worsens or any other new concerns. Drink lots of fluid to keep himself hydrated. Take the medicine as per the prescription direction. Med/Other Pt SpecificInfo: Prescription(s) given Scripts Diphenoxylate-Atropine (Lomotil) 2.5-0.025 Mg Tab 1 TAB PO Q6H Y for DIARRHEA, #10 TAB 0 Refills Prov: Aisha Puri MD 12/05/16 Disposition: 01 DISCHARGE HOME Condition: Stable Aisha Puri MD Dec 05, 2016 08:08
[2016-12-05] MEDS ORDERED: SODIUM CHLORIDE 0.9% FLUSH 10 ML FLUSH IV FLUSH PRN (08:15)
[2016-12-05 08:37] VITALS: RESP 16; O2SAT 99
[2016-12-05 09:02] LABS: AUTOMATED NEUTROPHIL # 4.3 TH/MM3 (1.8-7.7); BASOPHIL % 0.2 % (0.0-2.0); HEMO FLAGS DIFF FINAL; LYMPH % 17.8 % (9.0-44.0); LYMPHOCYTE # 1.1 TH/MM3 (1.0-4.8); MEAN CELL VOLUME 80.9 FL (80.0-100.0); MEAN CORPUSCULAR HEMOGLOBIN 26.7 PG (27.0-34.0); MONO % 11.5 % (0.0-8.0); NEUT % 70.5 % (16.0-70.0); PLATELET COUNT 218 TH/MM3 (150-450); RED CELL DISTRIBUTION WIDTH 23.7 % (11.6-17.2); WHITE BLOOD COUNT 6.1 TH/MM3 (4.0-11.0)
[2016-12-05 10:00] VITALS: BP 132/83; PULSE 74; RESP 18; O2SAT 99
[2016-12-05] MEDS ORDERED: KETOROLAC TROMETHAMINE 30 MG/ML (IVP) VIAL IV PUSH ONE (10:15)
[2016-12-05 10:39] LABS: BICARBONATE 26.4 MEQ/L (21.0-32.0); POTASSIUM 4.7 MEQ/L (3.5-5.1)
[2016-12-05 10:39] LABS: BACTERIA, URINE RARE /hpf; BLOOD, URINE NEG (NEG); COMMENT (UR) CULT NOT INDICATED; CULTURE IF INDICATED CULT NOT INDICATED; GLUCOSE,URINE NEG (NEG); KETONE, URINE TRACE mg/dL (NEG); MUCUS URINE FEW /lpf (OCC); NITRITE,URINE NEG (NEG); PH, URINE 6.5 (5.0-8.5); SQUAMOUS EPITHELIAL CELL URINE 2 /hpf (0-5); URINE COLOR YELLOW (YELLW/STRAW)
[2016-12-05] MEDS ORDERED: LOMO2.5T PO (10:54)
[2016-12-05 11:00] VITALS: BP 107/61; PULSE 80; RESP 16; O2SAT 100
== END 2016-12-05 11:33 | disposition home or self-care (01) ==
LOC: NEPE 07:33
DX: R19.7 Diarrhea, unspecified (principal); J45.909 Unspecified asthma, uncomplicated; K21.9 Gastro-esophageal reflux disease without esophagitis; I10 Essential (primary) hypertension
CPT/HCPCS: 80048; 81001; 85025; 96374; 99284; J1885; J7030

== ENCOUNTER 2016-12-13 19:06 | Emergency (ER) | payer BC, OTHER ==
[~2016-12-13] VITALS: Ht 167.6 cm; Wt 82.4 kg
[~2016-12-13 19:06] MED LIST changes: +APRITAB PO; -DOXY100C PO; +LOMO2.5T PO; -MACR100C2 PO; -METR-1 PO
[2016-12-13 19:14] VITALS: BP 115/61; PULSE 80; RESP 14; TEMP 98.2; O2SAT 100
[2016-12-13] MEDS ORDERED: SODIUM CHLOR 0.9% 1000 ML INJ 1,000 ML IV ONE (20:51)
[2016-12-13] MEDS ORDERED: SODIUM CHLORIDE 0.9% FLUSH 10 ML FLUSH IVF PRN (21:00)
--- NOTE | 2016-12-13 21:01 | PD ---
HPI Chief Complaint: Cold / Flu Symptoms Time Seen by Provider: 20:50 Travel History International Travel<30 days: No Contact w/Intl Traveler<30days: No Traveled to known affect area: No History of Present Illness HPI The patient is a 31-year-old female that complains of apparently low-grade fever , generalized myalgias and headache for 3 days. She also has chills and a mild cough. She denies any shortness of breath or chest pain. The patient also has had diarrhea for 2 weeks on and off which is of mild diarrhea. She denies any blood in the stool. She states she has been vomiting on occasion. She denies any abdominal surgeries and still has her appendix and gallbladder. The patient is a frequent visitor to this emergency department. PFSH Past Medical History Asthma: Yes Autoimmune Disease: Yes Blood Disorders: Yes (HIV) Heart Rhythm Problems: Yes Cardiovascular Problems: Yes High Cholesterol: Yes Cystic Fibrosis: No Diminished Hearing: No Gastrointestinal Disorders: No GERD: Yes Headaches: Yes Hypertension: Yes Immune Disorder: Yes (HIV) Musculoskeletal: No Neurologic: No Psychiatric: No Reproductive: No Respiratory: No Pneumonia: Yes Seizures: No Shingles: Yes Sleep Apnea: No Tetanus Vaccination: < 5 Years Influenza Vaccination: Yes ?: Unknown LMP: 10--17 : 0 Ectopic : No Ovarian Cysts: No Dilation and Curettage (D&C): No Tubal Ligation: No Past Surgical History Abdominal Surgery: No Section: No Genitourinary Surgery: No Hysterectomy: No Neurologic Surgery: No Other Surgery: Yes (BL axilla for hidradenitis suppurativa) Social History Alcohol Use: Yes (Occ.) Tobacco Use: No (QUIT AGE 30) Substance Use: No Allergies-Medications (Allergen,Severity, Reaction): Coded Allergies: Sulfa (Sulfonamide Antibiotics) (Unverified Allergy, Intermediate, Rash, 12/13/16) Rash all over body sulfamethoxazole (Unverified Allergy, Intermediate, Rash, 12/13/16) trimethoprim (Unverified Allergy, Intermediate, Rash, 12/13/16) Reported Meds & Prescriptions Reported Meds & Active Scripts Active Reported Apri (Desogestrel-Ethinyl Estradiol) 0.15-30 Mg-Mcg Tab 1 Tab PO DAILY Chlorthalidone 25 Mg Tab 12.5 Mg PO DAILY Epzicom (Abacavir-Lamivudine) 600-300 Mg Tab 1 Tab PO DAILY Hazardous agent; use appropriate precautions for handling & disposal. Prezcobix (Darunavir-Cobicistat) 800-150 Mg Tab 1 Tab PO DAILY Lisinopril 20 Mg Tab 30 Mg PO DAILY Atorvastatin (Atorvastatin Calcium) 20 Mg Tab 20 Mg PO HS Review of Systems Except as stated in HPI: all other systems reviewed are Neg Physical Exam Narrative GENERAL: Minimally dehydrated appearing patient in minimal apparent distress with her abdominal discomfort. Her vital signs are normal. SKIN: Focused skin assessment warm/dry. HEAD: Atraumatic. Normocephalic. EYES: Pupils equal and round. No scleral icterus. No injection or drainage. ENT: No nasal bleeding or discharge. Mucous membranes pink and moist. NECK: Trachea midline. No JVD. CARDIOVASCULAR: Regular rate and rhythm. No murmur appreciated. RESPIRATORY: No accessory muscle use. Clear to auscultation. Breath sounds equal bilaterally. GASTROINTESTINAL: Abdomen soft, non-tender, nondistended. Hepatic and splenic margins not palpable. No guarding or rebound is present. MUSCULOSKELETAL: No obvious deformities. No clubbing. No cyanosis. No edema. NEUROLOGICAL: Awake and alert. No obvious cranial nerve deficits. Motor grossly within normal limits. Normal speech. PSYCHIATRIC: Appropriate mood and affect; insight and judgment normal. Data Data Last Documented VS Vital Signs Date Time Temp Pulse Resp B/P (MAP) Pulse Ox O2 Delivery O2 Flow Rate FiO2 12/13/16 20:02 Room Air 12/13/16 19:14 98.2 80 14 115/61 (79) 100 Orders Orders Beta Hcg (Quant/Titer) (12/13/16 20:51) Complete Blood Count With Diff (12/13/16 20:51) Basic Metabolic Panel (Bmp) (12/13/16 20:51) Urinalysis - C+S If Indicated (12/13/16 20:51) Sodium Chlor 0.9% 1000 Ml Inj (Ns 1000 M (12/13/16 20:51) Influenzae A/B Antigen (12/13/16 20:51) Sodium Chloride 0.9% Flush (Ns Flush) (12/13/16 21:00) Urine Culture (12/13/16 21:59) Labs Laboratory Tests Test 12/13/16 21:42 10/19/17 21:59 White Blood Count 11.1 TH/MM3 Red Blood Count 4.42 MIL/MM3 Hemoglobin 11.4 GM/DL Hematocrit 34.8 % Mean Corpuscular Volume 78.8 FL Mean Corpuscular Hemoglobin 25.8 PG Mean Corpuscular Hemoglobin Concent 32.7 % Red Cell Distribution Width 22.0 % Platelet Count 255 TH/MM3 Mean Platelet Volume 8.9 FL Neutrophils (%) (Auto) 61.0 % Lymphocytes (%) (Auto) 24.6 % Monocytes (%) (Auto) 12.7 % Eosinophils (%) (Auto) 1.3 % Basophils (%) (Auto) 0.4 % Neutrophils # (Auto) 6.9 TH/MM3 Lymphocytes # (Auto) 2.7 TH/MM3 Monocytes # (Auto) 1.4 TH/MM3 Eosinophils # (Auto) 0.1 TH/MM3 Basophils # (Auto) 0.0 TH/MM3 CBC Comment DIFF FINAL Differential Comment Blood Urea Nitrogen 12 MG/DL Creatinine 0.77 MG/DL Random Glucose 80 MG/DL Calcium Level 7.8 MG/DL Sodium Level 139 MEQ/L Potassium Level 3.4 MEQ/L Chloride Level 105 MEQ/L Carbon Dioxide Level 27.0 MEQ/L Anion Gap 7 MEQ/L Estimat Glomerular Filtration Rate 107 ML/MIN Human Chorionic Gonadotropin, Quant LESS THAN 1 MIU/ML Urine Color YELLOW Urine Turbidity CLEAR Urine pH 6.0 Urine Specific [place] 1.025 Urine Protein NEG mg/dL Urine Glucose (UA) NEG mg/dL Urine Ketones NEG mg/dL Urine Occult Blood NEG Urine Nitrite NEG Urine Bilirubin NEG Urine Leukocyte Esterase NEG Urine RBC 0-3 /hpf Urine WBC 15-19 /hpf Urine Squamous Epithelial Cells 0-5 /hpf Urine Bacteria FEW /hpf Microscopic Urinalysis Comment CULTURE INDICATED MDM Medical Decision Making Medical Screen Exam Complete: Yes Emergency Medical Condition: Yes Medical Record Reviewed: Yes Interpretation(s) The CBC shows a white count of 11,100 with a hemoglobin of 11.4 and hematocrit of 34.8. It is otherwise unremarkable. The basic metabolic profile shows a potassium of 3.4 calcium 7.8% otherwise normal. The beta-hCG is less than 1. The urinalysis shows a 15-19 white cells and few bacteria and culture is indicated. The influenza A/B antigen is negative for flu a and flu B antigen. Differential Diagnosis Flu syndrome, viral gastroenteritis, urinary tract infection, colitis, bacterial enteritis Narrative Course The patient appears to have a urinary tract infection. She'll be put on Cipro 500 mg twice daily for 10 days. She needs to follow-up with her primary care physician next week and increase her liquid intake. Diagnosis Primary Impression: Urinary tract infection Additional Instructions: Increase liquid intake, it is important to establish a good urine flow across your kidneys. He is one tablet twice daily for 10 days. The nausea pill is one tablet 4 times daily as needed for nausea. Follow-up with your primary care physician next week. Med/Other Pt SpecificInfo: Prescription(s) given Scripts Ciprofloxacin (Cipro) 500 Mg Tab 500 MG PO BID for Infection for 10 Days, #20 TAB 0 Refills Prov: Fautso Rucker MD 12/13/16 Prochlorperazine Maleate (Prochlorperazine Maleate) 10 Mg Tab 10 MG PO Q6H Y for NAUSEA OR VOMITING, #30 TAB 0 Refills Prov: Fausto Rucker MD 12/13/16 Disposition: 01 DISCHARGE HOME Condition: Stable Fausto Rucker MD Dec 13, 2016 21:01
[2016-12-13 21:56] LABS: CHLORIDE 105 MEQ/L (98-107); POTASSIUM 3.4 MEQ/L (3.5-5.1); SODIUM (NA) 139 MEQ/L (136-145)
[2016-12-13 21:58] LABS: ANION GAP 7 MEQ/L (5-15)
[2016-12-13 21:59] LABS: BLOOD UREA NITROGEN 12 MG/DL (7-18)
[2016-12-13 22:02] LABS: AUTOMATED NEUTROPHIL # 6.9 TH/MM3 (1.8-7.7); BASOPHIL % 0.4 % (0.0-2.0); EOSINOPHIL # 0.1 TH/MM3 (0-0.4); EOSINOPHIL % 1.3 % (0.0-4.0); GLOMERULAR FILTRATION RATE 107 ML/MIN (>89); HEMATOCRIT 34.8 % (35.0-46.0); HEMO FLAGS DIFF FINAL; LYMPH % 24.6 % (9.0-44.0); LYMPHOCYTE # 2.7 TH/MM3 (1.0-4.8); MEAN CELL VOLUME 78.8 FL (80.0-100.0); MEAN CORPUSCULAR HEMOGLOBIN 25.8 PG (27.0-34.0); MEAN CORPUSCULAR HGB CONC 32.7 % (32.0-36.0); MONO % 12.7 % (0.0-8.0); PLATELET COUNT 255 TH/MM3 (150-450); RED BLOOD COUNT 4.42 MIL/MM3 (4.00-5.30); WHITE BLOOD COUNT 11.1 TH/MM3 (4.0-11.0)
[2016-12-13 22:07] LABS: BETA HCG QUANT LESS THAN 1 MIU/ML (0-5)
[2016-12-13 22:20] LABS: BLOOD, URINE NEG (NEG); GLUCOSE,URINE NEG (NEG); KETONE, URINE NEG (NEG); NITRITE,URINE NEG (NEG)
[2016-12-13 22:40] LABS: URINE COLOR YELLOW (YELLW/STRAW)
[2016-12-13 22:41] LABS: BACTERIA, URINE FEW /hpf; RBC, URINE 0-3 /hpf (0-3); SQUAMOUS EPITHELIAL CELL URINE 0-5 /hpf (0-5)
[2016-12-13 22:42] LABS: COMMENT (UR) CULTURE INDICATED; CULTURE IF INDICATED CULTURE INDICATED; WBC, URINE 15-19 /hpf (0-5)
[2016-12-13] MEDS ORDERED: PROC10TA PO (23:17)
[2016-12-13] MEDS ORDERED: CIPR-9 PO (23:17)
[2016-12-13 23:26] VITALS: BP 130/88
== END 2016-12-13 23:31 | disposition home or self-care (01) ==
LOC: PHED 19:06
DX: N39.0 Urinary tract infection, site not specified (principal); B96.1 Klebsiella pneumoniae [K. pneumoniae] as the cause of diseases classified elsewhere; Z21 Asymptomatic human immunodeficiency virus [HIV] infection status
CPT/HCPCS: 80048; 81001; 84702; 85025; 87077; 87086; 87186; 87804; 96360; 99284; J7030

== ENCOUNTER 2017-04-26 04:24 | Emergency (ER) | payer BC, OTHER ==
[~2017-04-26] VITALS: Ht 165.1 cm; Wt 89.0 kg
[~2017-04-26 04:24] MED LIST changes: +CIPR-9 PO; -LOMO2.5T PO; +PROC10TA PO; -PROM25TA10 PO
[2017-04-26 04:29] VITALS: BP 140/101; PULSE 90; RESP 20; TEMP 98.4; O2SAT 100
[2017-04-26] MEDS ORDERED: SODIUM CHLORIDE 0.9% FLUSH 10 ML FLUSH IV FLUSH PRN (04:45)
[2017-04-26] MEDS ORDERED: KETOROLAC TROMETHAMINE 30 MG/ML (IVP) VIAL IVP ONE (04:45)
--- NOTE | 2017-04-26 05:05 | PD ---
HPI Chief Complaint: Abdominal Pain Time Seen by Provider: 04:35 Travel History International Travel<30 days: No Contact w/Intl Traveler<30days: No Traveled to known affect area: No History of Present Illness HPI 31-year-old female presents to the emergency department by private transportation for complaint of intermittent left flank pain 3 months. Patient states she notes flank pain associated with menses. Patient rates her pain is moderate to severe. Patient states pain is not relieved by over-the- counter medications. Patient has had associated nausea without vomiting. Patient denies fever or chills. No dysuria frequency urgency or hematuria. No vaginal discharge. No previous abdominal surgery. Pain is also to endorses left flank. No history of kidney stones. No history of trauma. Patient is unable to identify exacerbating or alleviating factors. PFSH Past Medical History Narrative Medical Asthma HIV dyslipidemia GERD hypertension pneumonia shingles hidradenitis suppurativa; nursing notes reviewed Asthma: Yes Autoimmune Disease: Yes Blood Disorders: Yes (HIV) Heart Rhythm Problems: Yes Cardiovascular Problems: Yes High Cholesterol: Yes Chest Pain: No Cystic Fibrosis: No Diminished Hearing: No Gastrointestinal Disorders: No GERD: Yes Genitourinary: No Headaches: Yes Hypertension: Yes Immune Disorder: Yes (HIV) Musculoskeletal: No Neurologic: No Psychiatric: No Reproductive: No Respiratory: No Immunizations Current: Yes Pneumonia: Yes Seizures: No Shingles: Yes Sleep Apnea: No Tetanus Vaccination: Unknown Influenza Vaccination: Yes ?: Unknown : 0 Ectopic : No Ovarian Cysts: No Dilation and Curettage (D&C): No Tubal Ligation: No Past Surgical History Abdominal Surgery: No Section: No Genitourinary Surgery: No Hysterectomy: No Neurologic Surgery: No Thoracic Surgery: No Other Surgery: Yes (BL axilla for hidradenitis suppurativa) Social History Alcohol Use: Yes (Occ.) Tobacco Use: No (QUIT AGE 30) Substance Use: No Allergies-Medications (Allergen,Severity, Reaction): Coded Allergies: Sulfa (Sulfonamide Antibiotics) (Unverified Allergy, Intermediate, Rash, ) Rash all over body sulfamethoxazole (Unverified Allergy, Intermediate, Rash, 04/26/17) trimethoprim (Unverified Allergy, Intermediate, Rash, 04/26/17) Reported Meds & Prescriptions Reported Meds & Active Scripts Active Zofran Odt (Ondansetron Odt) 4 Mg Tab 4 Mg SL Q6HR PRN Anaprox DS (Naproxen Sodium) 550 Mg Tab 550 Mg PO Q12HR PRN Reported Epzicom (Abacavir-Lamivudine) 600-300 Mg Tab 1 Tab PO DAILY Hazardous agent; use appropriate precautions for handling & disposal. Prezcobix (Darunavir-Cobicistat) 800-150 Mg Tab 1 Tab PO DAILY Review of Systems Except as stated in HPI: all other systems reviewed are Neg Physical Exam Narrative GENERAL: Well-developed well-nourished female crying in no respiratory distress SKIN: Warm and dry. HEAD: Normocephalic. EYES: No scleral icterus. No injection or drainage. NECK: Supple, trachea midline. No JVD or lymphadenopathy. CARDIOVASCULAR: Regular rate and rhythm without murmurs, gallops, or rubs. RESPIRATORY: Breath sounds equal bilaterally. No accessory muscle use. GASTROINTESTINAL: Abdomen soft, left upper quadrant and flank tenderness, nondistended. MUSCULOSKELETAL: No cyanosis, or edema. BACK: Nontender without obvious deformity. No CVA tenderness. Data Data Last Documented VS Vital Signs Date Time Temp Pulse Resp B/P (MAP) Pulse Ox O2 Delivery O2 Flow Rate FiO2 04/26/17 06:35 75 16 140/88 (105) 98 Room Air 04/26/17 04:29 98.4 Orders Orders Complete Blood Count With Diff (04/26/17 04:35) Comprehensive Metabolic Panel (04/26/17 04:35) Urinalysis - C+S If Indicated (04/26/17 04:35) Ct Abd/Pel W Iv Contrast(Rout) (04/26/17 04:35) Iv Access Insert/Monitor (04/26/17 04:35) Ecg Monitoring (04/26/17 04:35) Oximetry (04/26/17 04:35) Sodium Chloride 0.9% Flush (Ns Flush) (04/26/17 04:45) Ketorolac Inj (Toradol Inj) (04/26/17 04:45) Ed Urine Pregnancytest Poc (04/26/17 04:35) Cath For Specimen (04/26/17 04:39) Urine Culture (04/26/17 05:05) Iohexol 350 Inj (Omnipaque 350 Inj) (04/26/17 05:48) Ed Discharge Order (04/26/17 06:58) Labs Laboratory Tests Test 04/26/17 05:05 White Blood Count 17.2 TH/MM3 Red Blood Count 4.37 MIL/MM3 Hemoglobin 12.0 GM/DL Hematocrit 36.2 % Mean Corpuscular Volume 82.9 FL Mean Corpuscular Hemoglobin 27.6 PG Mean Corpuscular Hemoglobin Concent 33.3 % Red Cell Distribution Width 16.9 % Platelet Count 243 TH/MM3 Mean Platelet Volume 8.5 FL Neutrophils (%) (Auto) 68.1 % Lymphocytes (%) (Auto) 19.0 % Monocytes (%) (Auto) 9.1 % Eosinophils (%) (Auto) 0.5 % Basophils (%) (Auto) 3.3 % Neutrophils # (Auto) 11.6 TH/MM3 Lymphocytes # (Auto) 3.3 TH/MM3 Monocytes # (Auto) 1.6 TH/MM3 Eosinophils # (Auto) 0.1 TH/MM3 Basophils # (Auto) 0.6 TH/MM3 CBC Comment DIFF FINAL Differential Comment Urine Color YELLOW Urine Turbidity CLEAR Urine pH 6.5 Urine Specific [place] 1.015 Urine Protein NEG mg/dL Urine Glucose (UA) NEG mg/dL Urine Ketones NEG mg/dL Urine Occult Blood NEG Urine Nitrite NEG Urine Bilirubin NEG Urine Urobilinogen 1.0 MG/DL Urine Leukocyte Esterase NEG Urine RBC 0-2 /hpf Urine WBC 0-2 /hpf Urine Squamous Epithelial Cells 0-5 /hpf Urine Bacteria FEW /hpf Microscopic Urinalysis Comment CATH-CULTURE IND Blood Urea Nitrogen 11 MG/DL Creatinine 0.77 MG/DL Random Glucose 88 MG/DL Total Protein 7.3 GM/DL Albumin 3.5 GM/DL Calcium Level 8.3 MG/DL Alkaline Phosphatase 92 U/L Aspartate Amino Transf (AST/SGOT) 13 U/L Alanine Aminotransferase (ALT/SGPT) 25 U/L Total Bilirubin 0.2 MG/DL Sodium Level 137 MEQ/L Potassium Level 3.7 MEQ/L Chloride Level 107 MEQ/L Carbon Dioxide Level 23.0 MEQ/L Anion Gap 7 MEQ/L Estimat Glomerular Filtration Rate 107 ML/MIN MDM Medical Decision Making Medical Screen Exam Complete: Yes Emergency Medical Condition: Yes Medical Record Reviewed: Yes Interpretation(s) poc hcg: negative CBC & BMP Diagram 04/26/17 05:05 Total Protein 7.3, Albumin 3.5, Calcium Level 8.3 L, Alkaline Phosphatase 92, Aspartate Amino Transf (AST/SGOT) 13 L, Alanine Aminotransferase (ALT/SGPT) 25, Total Bilirubin 0.2 Vital Signs Date Time Temp Pulse Resp B/P (MAP) Pulse Ox O2 Delivery O2 Flow Rate FiO2 04/26/17 04:29 98.4 90 20 140/101 (114) 100 CT a/p: CONCLUSION: Negative CT abdomen/pelvis with contrast. Real Yuen MD on April 26, 2017 at 6:45 Board Certified Radiologist. This report was verified electronically. Differential Diagnosis Abdominal pain, mass, ovarian cyst, ovarian torsion, UTI, pyelonephritis, renal colic Narrative Course IV access obtained specimens collected and sent for resulting; [id number] hCG negative Lab values grossly within normal range CT abdomen pelvis pending Patient has received Toradol 30 mg IV and appears to be resting Diagnosis Primary Impression: Left flank pain Additional Impression: Menstrual pain Referrals: Primary Care Physician call for appointment Patient Instructions: General Instructions Departure Forms: Tests/Procedures, Work Release Special Instructions: no work x 1 day Additional Instructions: Take medication as prescribed No work 1 day Follow clear liquid diet for next 12-24 hours advance as tolerated to bland/ brat diet as an advanced regular diet subsequently Monitor temperature every 4 hours with thermometry take acetaminophen/Tylenol every 4 hours as needed for fever 100.4F or greater Return to the emergency department for any concerns or change in condition Follow-up with your primary care/prescribing provider Med/Other Pt SpecificInfo: Prescription(s) given Scripts Ondansetron Odt (Zofran Odt) 4 Mg Tab 4 MG SL Q6HR Y for Nausea/Vomiting, #10 TAB 0 Refills Prov: Latisha Castellanos MD 04/26/17 Naproxen Sodium DS (Anaprox DS) 550 Mg Tab 550 MG PO Q12HR Y for PAIN GREATER THAN 5, #12 TAB 0 Refills Prov: Latisha Castellanos MD 04/26/17 Disposition: 01 DISCHARGE HOME Condition: Stable Latisha Castellanos MD Apr 26, 2017 05:05
[2017-04-26 05:09] LABS: BILIRUBIN, URINE NEG (NEG); BLOOD, URINE NEG (NEG); GLUCOSE,URINE NEG (NEG); KETONE, URINE NEG (NEG); NITRITE,URINE NEG (NEG); PH, URINE 6.5 (5.0-8.5); URINE COLOR YELLOW (YELLW/STRAW); URINE LEUKOCYTE ESTERASE NEG (NEG)
[2017-04-26 05:10] LABS: AUTOMATED NEUTROPHIL # 11.6 TH/MM3 (1.8-7.7); BASOPHIL # 0.6 TH/MM3 (0-0.2); BASOPHIL % 3.3 % (0.0-2.0); EOSINOPHIL # 0.1 TH/MM3 (0-0.4); EOSINOPHIL % 0.5 % (0.0-4.0); HEMATOCRIT 36.2 % (35.0-46.0); LYMPHOCYTE # 3.3 TH/MM3 (1.0-4.8); MEAN CELL VOLUME 82.9 FL (80.0-100.0); MEAN CORPUSCULAR HEMOGLOBIN 27.6 PG (27.0-34.0); MEAN CORPUSCULAR HGB CONC 33.3 % (32.0-36.0); MEAN PLATELET VOLUME 8.5 FL (7.0-11.0); MONO % 9.1 % (0.0-8.0); MONOCYTE # 1.6 TH/MM3 (0-0.9); NEUT % 68.1 % (16.0-70.0); PLATELET COUNT 243 TH/MM3 (150-450); RED BLOOD COUNT 4.37 MIL/MM3 (4.00-5.30); RED CELL DISTRIBUTION WIDTH 16.9 % (11.6-17.2); WHITE BLOOD COUNT 17.2 TH/MM3 (4.0-11.0)
[2017-04-26 05:18] LABS: BACTERIA, URINE FEW /hpf; RBC, URINE 0-2 /hpf (0-3); SQUAMOUS EPITHELIAL CELL URINE 0-5 /hpf (0-5); WBC, URINE 0-2 /hpf (0-5)
[2017-04-26 05:19] LABS: CHLORIDE 107 MEQ/L (98-107); SODIUM (NA) 137 MEQ/L (136-145)
[2017-04-26 05:22] LABS: CALCIUM 8.3 MG/DL (8.5-10.1)
[2017-04-26 05:23] LABS: ALBUMIN 3.5 GM/DL (3.4-5.0); BLOOD UREA NITROGEN 11 MG/DL (7-18); GLUCOSE,RANDOM 88 MG/DL (74-106)
[2017-04-26 05:26] LABS: ALT (GPT) 25 U/L (10-53); AST (GOT) 13 U/L (15-37); CREATININE 0.77 MG/DL (0.50-1.00); GLOMERULAR FILTRATION RATE 107 ML/MIN (>89)
[2017-04-26 05:27] LABS: TOTAL BILIRUBIN ADULT 0.2 MG/DL (0.2-1.0); TOTAL PROTEIN 7.3 GM/DL (6.4-8.2)
[2017-04-26 05:29] LABS: ALKALINE PHOSPHATASE 92 U/L (45-117)
[2017-04-26] MEDS ORDERED: IOHEXOL 350 MG/ML 10 ML VIAL (for RAD DIAG) IVCONTRAST ONE (05:48)
[2017-04-26 06:35] VITALS: BP 140/88; PULSE 75; RESP 16; O2SAT 98
--- NOTE | 2017-04-26 06:49 | RADRPT ---
EXAM DATE/TIME: 04/26/2017 05:45 [facility] COMPARISON: CT ABDOMEN & PELVIS W CONTRAST, November 15, 2016, 6:16. INDICATIONS : Left sided abdominal pain X 2 months worsening today. IV CONTRAST: 97 cc Omnipaque 350 (iohexol) IV ORAL CONTRAST: No oral contrast ingested. RADIATION DOSE: 8.97 CTDIvol (mGy) MEDICAL HISTORY : HIV. Hypertension. Asthma SURGICAL HISTORY : None. ENCOUNTER: Initial ACUITY: 2 months PAIN SCALE: 7/10 LOCATION: Left flank abdomen TECHNIQUE: Volumetric scanning of the abdomen and pelvis was performed. Using automated exposure control and ad justment of the mA and/or kV according to patient size, radiation dose was kept as low as reasonably achievable to obtain optimal diagnostic quality images. DICOM format image data is available electro nically for review and comparison. FINDINGS: LOWER LUNGS: The visualized lower lungs are clear. LIVER: Homogeneous density without lesion. There is no dilation of the biliary tree. No calcified gallston es. SPLEEN: Normal size without lesion. PANCREAS: Within normal limits. KIDNEYS: Normal in size and shape. There is no mass, stone or hydronephrosis. ADRENAL GLANDS: Within normal limits. VASCULAR: There is no aortic aneurysm. BOWEL/MESENTERY: No dilated loops of small or large bowel. ABDOMINAL WALL: Within normal limits. RETROPERITONEUM: There is no lymphadenopathy. BLADDER: No wall thickening or mass. REPRODUCTIVE: Anteverted uterus. No evidence of free fluid. INGUINAL: There is no lymphadenopathy or hernia. MUSCULOSKELETAL: Symmetric and stable sclerosis of the SI joints. CONCLUSION: Negative CT abdomen/pelvis with contrast. Real Yuen MD on April 26, 2017 at 6:45 Board Certified Radiologist. This report was verified electronically.
[2017-04-26] MEDS ORDERED: NAPR5TAB5 PO (06:52)
[2017-04-26] MEDS ORDERED: ZOFR4TAB3 SL (06:52)
== END 2017-04-26 07:20 | disposition home or self-care (01) ==
LOC: PHED 04:24
DX: B20 Human immunodeficiency virus [HIV] disease (principal); R10.9 Unspecified abdominal pain; N94.6 Dysmenorrhea, unspecified
CPT/HCPCS: 74177; 80053; 81001; 84703; 85025; 87077; 87086; 87186; 96374; 99284; J1885; Q9967

== ENCOUNTER 2017-04-30 23:34 | Emergency (ER) | payer BC ==
[~2017-04-30] VITALS: Ht 165.1 cm; Wt 89.7 kg
[~2017-04-30 23:34] MED LIST changes: -APRITAB PO; -ATOR20TA15 PO; -CHLO25TA2 PO; -CIPR-9 PO; -LISI-515 PO; +NAPR5TAB5 PO; -PROC10TA PO; +ZOFR4TAB3 SL
[2017-04-30 23:44] VITALS: BP 147/75; PULSE 97; RESP 14; TEMP 98.8; O2SAT 99
[2017-05-01] MEDS ORDERED: LIDOCAINE VISCOUS 2% SOLN 15 ML UDC SWISH-SWAL ONE (00:45)
[2017-05-01] MEDS ORDERED: diphenhydrAMINE HCL ELIXIR 12.5 MG/5 ML CUP PO ONE (00:45)
[2017-05-01] MEDS ORDERED: ALUMINUM/MAGNESIUM/SIMETH 30 ML CUP PO ONE (00:45)
[2017-05-01] MEDS ORDERED: MAGICPED SWISH-SWAL (01:27)
[2017-05-01] MEDS ORDERED: AMOX500C PO (01:27)
--- NOTE | 2017-05-01 01:29 | PD ---
HPI Chief Complaint: ENT Complaint Time Seen by Provider: 23:52 Travel History International Travel<30 days: No Contact w/Intl Traveler<30days: No Traveled to known affect area: No History of Present Illness HPI Patient is a 31-year-old female for 3 days had a sore throat congestion cough bodyaches fever. She is not taking anything to alleviate her symptoms and she has not seen another doctor she is us very sore throat nasal congestion PFSH Past Medical History Asthma: Yes Autoimmune Disease: Yes Blood Disorders: Yes (HIV) Heart Rhythm Problems: Yes Cardiovascular Problems: Yes High Cholesterol: Yes Chest Pain: No Cystic Fibrosis: No Diminished Hearing: No Gastrointestinal Disorders: No GERD: Yes Genitourinary: No Headaches: Yes Hypertension: Yes Immune Disorder: Yes (HIV) Musculoskeletal: No Neurologic: No Psychiatric: No Reproductive: No Respiratory: No Immunizations Current: Yes Pneumonia: Yes Seizures: No Shingles: Yes Sleep Apnea: No Influenza Vaccination: Yes ?: Not LMP: 04/21/17 : 0 Ectopic : No Ovarian Cysts: No Dilation and Curettage (D&C): No Tubal Ligation: No Past Surgical History Abdominal Surgery: No Section: No Genitourinary Surgery: No Hysterectomy: No Neurologic Surgery: No Thoracic Surgery: No Other Surgery: Yes (BL axilla for hidradenitis suppurativa) Social History Alcohol Use: Yes (Occ.) Tobacco Use: No (QUIT AGE 30) Substance Use: No Allergies-Medications (Allergen,Severity, Reaction): Coded Allergies: Sulfa (Sulfonamide Antibiotics) (Unverified Allergy, Intermediate, Rash, ) Rash all over body sulfamethoxazole (Unverified Allergy, Intermediate, Rash, 04/30/17) trimethoprim (Unverified Allergy, Intermediate, Rash, 04/30/17) Reported Meds & Prescriptions Reported Meds & Active Scripts Active Ibuprofen 600 Mg Tab 600 Mg PO Q6H PRN Cipro Hc Otic Drops (Ciprofloxacin/Hydrocortisone) 0.2-1% Susp 3 Drop LEFT EAR BID Tamiflu (Oseltamivir Phosphate) 75 Mg Cap 75 Mg PO BID Amoxicillin 500 Mg Cap 500 Mg PO TID Magic Mouthwash Pediatric/Adult Liq (Lidocaine/Diphenhydr/Alum/Mg/Simeth) 60 Ml Susp 5 Ml SWISH-SWAL ACHS Each 5mL contains: Diphenydramine 4.5mg, Viscous Lidocaine 2% 10mg, Maalox Advanced Regular Strength 2.7ml Zofran Odt (Ondansetron Odt) 4 Mg Tab 4 Mg SL Q6HR PRN Anaprox DS (Naproxen Sodium) 550 Mg Tab 550 Mg PO Q12HR PRN Reported Epzicom (Abacavir-Lamivudine) 600-300 Mg Tab 1 Tab PO DAILY Hazardous agent; use appropriate precautions for handling & disposal. Prezcobix (Darunavir-Cobicistat) 800-150 Mg Tab 1 Tab PO DAILY Review of Systems Except as stated in HPI: all other systems reviewed are Neg General / Constitutional: Positive: Fever, Chills HENT: Positive: Sore Throat, Rhinitis, Congestion Respiratory: Positive: Cough Physical Exam Narrative GENERAL: Nontoxic-appearing but appears uncomfortable SKIN: Warm and dry. HEAD: Atraumatic. Normocephalic. EYES: Pupils equal and round. No scleral icterus. No injection or drainage. ENT: No nasal bleeding or discharge. Mucous membranes pink and moist. TM cloudy bilateral with left external ear canal is mildly purulent NECK: Trachea midline. No JVD. Mild submental lymphadenopathy posterior pharynx red bilateral CARDIOVASCULAR: Regular rate and rhythm. RESPIRATORY: No accessory muscle use. Clear to auscultation. Breath sounds equal bilaterally. Lungs are clear to auscultation GASTROINTESTINAL: Abdomen soft, non-tender, nondistended. Hepatic and splenic margins not palpable. MUSCULOSKELETAL: Extremities without clubbing, cyanosis, or edema. No obvious deformities. NEUROLOGICAL: Awake and alert. No obvious cranial nerve deficits. Motor grossly within normal limits. Five out of 5 muscle strength in the arms and legs. Normal speech. PSYCHIATRIC: Appropriate mood and affect; insight and judgment normal. Data Data Last Documented VS Vital Signs Date Time Temp Pulse Resp B/P (MAP) Pulse Ox O2 Delivery O2 Flow Rate FiO2 04/30/17 23:44 98.8 97 14 147/75 (99) 99 Orders Orders Group A Rapid Strep Screen (05/01/17 00:36) Influenzae A/B Antigen (05/01/17 00:36) Lidocaine 2% Viscous (Xylocaine 2% Visco (05/01/17 00:45) Diphenhydramine Liq (Benadryl Liq) (05/01/17 00:45) Al-Mag Hy-Si 40-40-4 Mg/Ml Liq (Mag-Al P (05/01/17 00:45) Strep Culture (Group A) (05/01/17 00:45) Oseltamivir (Tamiflu) (05/01/17 01:30) Ibuprofen (Motrin) (05/01/17 01:30) Pseudoephedrine (Sudafed) (05/01/17 01:30) Ed Discharge Order (05/01/17 02:04) MDM Medical Decision Making Medical Screen Exam Complete: Yes Emergency Medical Condition: Yes Differential Diagnosis Influenza versus strep throat versus viral bronchitis NOS versus pneumonia versus otitis externa versus otitis media Narrative Course Patient is positive for flu and she has external infection of the left ear treat her with multiple symptomatic medications include ibuprofen Sudafed and to give her Tamiflu 75 mg p.o. and give her scripts for all the above plus Robitussin-AC follow-up as an outpatient diagnosis is influenza Diagnosis Primary Impression: Influenza A Additional Impression: Otitis externa Qualified Codes: H60.92 - Unspecified otitis externa, left ear Patient Instructions: General Instructions, Influenza (ED) Scripts Guaifenesin-Codeine Liq (Guaiatussin AC Liq) 100-10 Mg/5 Ml Syrp 10 ML PO Q6H Y for COUGH for 5 Days, #120 ML Prov: Mark Corral MD 05/01/17 Ibuprofen (Ibuprofen) 600 Mg Tab 600 MG PO Q6H Y for Pain/Inflammation, #40 TAB 0 Refills Prov: Mark Corral MD 05/01/17 Ciprofloxacin-Hydrocortisone Otic Drops (Cipro Hc Otic Drops) 0.2-1% Susp 3 DROP LEFT EAR BID for Infection, #1 BOTTLE 0 Refills Prov: Mark Corral MD 05/01/17 Oseltamivir (Tamiflu) 75 Mg Cap 75 MG PO BID for Mgmt Viral Infection, #10 CAP 0 Refills Prov: Mark Corral MD 05/01/17 Amoxicillin (Amoxicillin) 500 Mg Cap 500 MG PO TID for Infection, #30 CAP 0 Refills Prov: Mark Corral MD 05/01/17 Divxmihubtniong-Bqyopukds-Kph-Alum-Simeth Liq (Magic Mouthwash Pediatric/Adult Liq) 60 Ml Susp 5 ML SWISH-SWAL ACHS for Mouth sores, #60 ML 0 Refills Each 5mL contains: Diphenydramine 4.5mg, Viscous Lidocaine 2% 10mg, Maalox Advanced Regular Strength 2.7ml Prov: Mark Corral MD 05/01/17 Disposition: 01 DISCHARGE HOME Condition: Good Mark Corral MD May 01, 2017 01:29
[2017-05-01] MEDS ORDERED: OSELTAMIVIR PHOSPHATE 75 MG CAP PO ONE (01:30)
[2017-05-01] MEDS ORDERED: IBUPROFEN 600 MG TAB PO ONE (01:30)
[2017-05-01] MEDS ORDERED: PSEUDOEPHEDRINE HCL 30 MG TAB PO ONE (01:30)
[2017-05-01] MEDS ORDERED: OSEL75 PO (01:54)
[2017-05-01] MEDS ORDERED: IBUP-232 PO (01:59)
[2017-05-01] MEDS ORDERED: CIPRHC10A LEFT EAR (01:59)
[2017-05-01] MEDS ORDERED: GUAISYP5 PO (02:12)
[2017-05-01 02:13] VITALS: BP 140/92; TEMP 98.2
== END 2017-05-01 02:15 | disposition home or self-care (01) ==
LOC: PHED 23:34
DX: J10.1 Influenza due to other identified influenza virus with other respiratory manifestations (principal); H60.92 Unspecified otitis externa, left ear; J45.909 Unspecified asthma, uncomplicated; I10 Essential (primary) hypertension; Z21 Asymptomatic human immunodeficiency virus [HIV] infection status
CPT/HCPCS: 87081; 87804; 87880; 99283